=== PATIENT | female | born 1975 | race Caucasian/White ===

== ENCOUNTER 2021-10-01 14:14 | Emergency (ER) | payer OTHER ==
[~2021-10-01] VITALS: Ht 167.6 cm; Wt 61.2 kg
[2021-10-01] MEDS ORDERED: BACTRIM DS TAB1 EACH PO (14:44)
[2021-10-01] MEDS ORDERED: PERCOCET PO (14:44)
[2021-10-01] MEDS ORDERED: CEPHALEXIN500 MG PO (14:44)
[2021-10-01 14:52] VITALS: BP 112/54
== END 2021-10-01 14:52 | disposition home or self-care (01) ==
LOC: M.ERS 14:14
DX: L03.113 Cellulitis of right upper limb (principal); F17.210 Nicotine dependence, cigarettes, uncomplicated